=== PATIENT | male | born 1975 | race Two or more races ===

== ENCOUNTER → 2019-11-14 | Outpatient (CLI) | payer BC ==
--- NOTE | 2019-11-14 22:25 | CONS ---
CONSULTATION DATE OF SERVICE: 11/14/2019 This patient is a 44-year-old gentleman who has been evaluated in the sleep center for possible obstructive sleep apnea-hypopnea syndrome. HISTORY OF PRESENT ILLNESS/SLEEP-WAKE EVALUATION: Patient's usual sleep schedule is from 11 p.m. to 7 a.m. on working days and from 11 p.m. until 7 to 11 a.m. on weekends. Usually no problems with falling asleep. No TV in bedroom. He sleeps on the side position with loud snoring, witnessed episodes of stopped breathing during sleep, awakenings from sleep with nocturia. He has positive history of twitching legs during the night also, according to his . Sometimes he has sleeptalking. In the morning the patient wakes up tired and is sleepy during the day. [place] Sleepiness Scale is 10. He may take one nap a day around noon time. Patient's weight has increased by around 60 pounds over the last 5 years. No history of hypnagogic hallucinations, sleep paralysis or cataplexy. PAST MEDICAL HISTORY: Positive for hypertension. MEDICATIONS: Losartan, hydrochlorothiazide. PAST SURGICAL HISTORY: None. SOCIAL HISTORY: Negative for smoking or using alcohol. FAMILY HISTORY: Hypertension, sleep apnea, snoring, questionable stroke in his mother. REVIEW OF SYSTEMS: Awakenings from sleep, sleepiness during the day, sometimes swelling of the legs. PHYSICAL EXAMINATION: GENERAL: A pleasant gentleman without distress. VITAL SIGNS: BP 138/88, HR 88, RR 16, height 6 feet 3 inches, weight 343.0, body mass index 48.8. HEENT: PERRLA, EOMI. Evaluation of oropharynx showed tongue protrudes midline. Short distance between soft palate and pharyngeal wall. Restriction of nasal breathing. Nose slightly asymmetric. NECK: Supple. No JVD. Thyroid is not palpable. LUNGS: Clear to percussion and to auscultation. Good air exchange. No wheezing or rhonchi. HEART: S1, S2 regular. No murmurs, gallops or rubs. ABDOMEN: Obese. EXTREMITIES: One plus bilateral ankle edema. MECHANICAL RELIABILITY ENGINEER: Awake, alert, and oriented X3. Cranial nerves 2 to 7 intact. There is no fasciculation or atrophy. noted. No focal deficits observed. IMPRESSION: 1. Loud snoring, witnessed episodes of stopped breathing during sleep, awakenings from sleep with choking and gasping for air, wide neck, 20 inches, sleepiness, [place] Sleepiness Scale of 10; obstructive sleep apnea-hypopnea syndrome. 2. Obesity; body mass index 42.8. 3. Hypertension. 4. Restriction of nasal breathing; possibly nasal septum deviation. PLAN: 1. Polysomnography for evaluation of patient's breathing during sleep. 2. CPAP/BiPAP titration if sleep study confirms obstructive sleep apnea-hypopnea syndrome. 3. Preferable position during sleep on the side. 4. No driving if patient feels any sleepiness. 5. I will see patient for follow up visit to explain results of testing and following plan. Thank you very much for referring this patient for consultation. Sincerely, David Iyer MD, PhD, FAASM Diplomat of [place] [employer] Specialties [place] [employer] Medicine Dry Starch Operator of [facility] [place] MMODL / IJN: [id number] /
== END | disposition home or self-care (01) ==
LOC: SLEEP 15:41
PROVIDERS: ATTEND Internal Medicine
DX: G47.33 Obstructive sleep apnea (adult) (pediatric) (principal); E66.9 Obesity, unspecified; Z68.41 Body mass index [BMI] 40.0-44.9, adult; I10 Essential (primary) hypertension; Z83.6 Family history of other diseases of the respiratory system; Z79.899 Other long term (current) drug therapy
CPT/HCPCS: 99211

== ENCOUNTER → 2020-04-29 | Outpatient (CLI) | payer BC ==
--- NOTE | 2020-04-29 20:23 | SFUN ---
SLEEP CENTER FOLLOW UP NOTE DATE OF SERVICE: 04/29/2020 This patient is a 44-year-old gentleman who has been followed in Sleep Center for treatment of obstructive sleep apnea-hypopnea syndrome. The patient recently received his CPAP unit. He is able to use the equipment every night, feels better with the machine. I reviewed results of his sleep studies and explained them to the patient. I checked the reading from his CPAP unit. Usage is 26/30 days, which is 87%, for more than 4 hours, with average usage 5 hours and 3 minutes. The machine is in the range of pressure 6 to 11 cm of water. The 95th percentile of the pressure is 10.7. Apnea- hypopnea index is 5.9. [place] Sleepiness Scale is 4. MEDICATIONS: Losartan, hydrochlorothiazide. PHYSICAL EXAMINATION: GENERAL: A pleasant patient in no distress. VITAL SIGNS: BP 115/67, HR 94, RR 16, weight 341, temperature 97.6, oxygen saturation at room air 97%. HEENT: PERRLA, EOMI. Evaluation of oropharynx showed tongue protrudes midline. Low position of soft palate. NECK: Supple. No JVD. Thyroid is not palpable. LUNGS: Clear to percussion and to auscultation. Good air exchange. No wheezing or rhonchi. HEART: S1, S2 regular. No murmurs, gallops or rubs. ABDOMEN: Obese. EXTREMITIES: No clubbing or cyanosis. HOME MANAGER: Awake, alert, and oriented X3. Cranial nerves 2 to 7 intact. There is no fasciculation or atrophy. noted. No focal deficits observed. IMPRESSION: 1. Obstructive sleep apnea-hypopnea syndrome. Patient demonstrated great compliance with treatment, benefitting from treatment. 2. Average apnea-hypopnea index slightly above 5, which is acceptable, but I believe the patient will need slightly higher pressure in his CPAP unit. 3. Hypertension. 4. Restriction of nasal breathing. PLAN: 1. I adjusted his CPAP unit to the range of pressure from 5 to 14 cm of water. 2. Patient will continue to use PAP equipment every night for the whole night. 3. Sleep hygiene with regular time in bed for at least 7-1/2 to 8 hours. 4. Precautions related to driving. No driving if feeling sleepiness. 5. I will maintain all necessary prescription for PAP supplies including mask, tube, filters. 6. Watching weight. 7. No driving if feeling sleepiness. 8. Follow-up visit in 6 months or earlier if patient has any problems. Thank you very much for allowing me to participate in the management of your patient. Sincerely, David Iyer MD, PhD, FAASM Diplomat of [place] Board of Medical Specialties [employer] [place] Board of Internal Medicine Yard Coordinator of [facility] [place] MMODL / MARTAN: [id number] /
== END | disposition home or self-care (01) ==
LOC: SLEEP 15:57
PROVIDERS: ATTEND Internal Medicine
DX: G47.33 Obstructive sleep apnea (adult) (pediatric) (principal); I10 Essential (primary) hypertension; R06.89 Other abnormalities of breathing; Z99.89 Dependence on other enabling machines and devices

== ENCOUNTER → 2020-11-19 | Outpatient (CLI) | payer BC ==
--- NOTE | 2020-11-19 23:19 | SFUN ---
SLEEP CENTER FOLLOW UP NOTE DATE OF SERVICE: 11/19/2020 45-year-old gentleman followed in Sleep Center for treatment of obstructive sleep apnea- hypopnea syndrome. The patient continues to use CPAP equipment every night and sometimes has been drooling while using machine. Otherwise, no snoring with the machine. No significant excessive daytime sleepiness. [place] Sleepiness Scale is 6, which is in normal range. I checked his CPAP machine. The range of the pressure is 6-14, average pressure is 10.7, usage is 23 out of 30 nights and 13 out of 30 nights for more than 4 hours. Average usage 4.4 hours per night. Leak is only 5 L/minute. Apnea-hypopnea index is 1.2, which is totally perfect. MEDICATIONS: Losartan 50 mg once a day. PHYSICAL EXAM: Patient in no distress. BP 116/80, HR 94, RR 15, height 6 feet 2 and 3 quarter inches, weight 341.2, temperature 98.6, oxygen saturation at room air 99%. Oropharynx: Low position of soft palate. NECK: Supple, no JVD. Thyroid is not palpable. LUNGS: Clear to percussion and to auscultation. Good air exchange. No wheezing or rhonchi. HEART: S1, S2 regular. No murmurs, gallops, or rubs. ABDOMEN: Obese. Soft and nontender. Bowel sounds are present. No organomegaly appreciated. EXTREMITIES: No clubbing or cyanosis. HOOK AND EYE SEWING MACHINE OPERATOR: Awake, alert, and oriented X3. Cranial nerves 2 to 7 intact. There is no fasciculation or atrophy. noted. No focal deficits observed. IMPRESSION: 1. Obstructive sleep apnea-hypopnea syndrome. The patient demonstrated good compliance with treatment benefitting from treatment. Totally normal apnea-hypopnea index at the present time after pressure was adjusted during the previous visit. 2. We discussed with the patient adjustments which might be necessary because he is experiencing some drooling. We discussed this. 3. Hypertension. 4. Restriction of nasal breathing. 5. Obesity, BMI 43.7. PLAN: 1. Patient will put machine lower than his head. 2. Prescription for chin strap. 3. Discuss possibility to adjust humidity slightly lower for prevention of drooling. 4. Sleep hygiene with regular time in bed for at least 7-1/2 to 8 hours. 5. Precautions related to driving. No driving if feeling sleepiness. 6. I will maintain all necessary prescription for PAP supplies including mask, tube, filters. 7. Watching weight. 8. No driving if feeling sleepiness. 9. Follow-up visit in 6 months or earlier if patient has any problems. Thank you very much for allowing me to participate in management of your patient. Sincerely, David Iyer MD, PhD, FAASM Diplomat of [place] Board of Medical Specialties [employer] Board of Internal Medicine Coiled Tubing Operator of [facility] [place] MMODL / MARTAN: [id number] /
== END | disposition home or self-care (01) ==
LOC: SLEEP 16:17
PROVIDERS: ATTEND Internal Medicine
DX: G47.33 Obstructive sleep apnea (adult) (pediatric) (principal); I10 Essential (primary) hypertension; E66.9 Obesity, unspecified; Z68.41 Body mass index [BMI] 40.0-44.9, adult; Z79.899 Other long term (current) drug therapy; Z99.89 Dependence on other enabling machines and devices

== ENCOUNTER → 2021-04-14 | Outpatient (CLI) | payer BC ==
--- NOTE | 2021-04-14 15:27 | SFUN ---
SLEEP CENTER FOLLOW UP NOTE DATE OF SERVICE: 04/14/2021 INTERVAL HISTORY: This 45-year-old gentleman has been followed in Sleep Center for treatment of obstructive sleep apnea-hypopnea syndrome. The patient continues to use his CPAP equipment, but still has some drooling from his mouth during sleep. We discussed the option for usage of the chinstrap. He received chinstrap but this was the wrong size of the chinstrap. [place] Sleepiness Scale today is 5. I checked his CPAP unit. Range of the pressure 6-14. Usage is 16/30 nights. Average usage is 3.9 hours per night. Leak is 11 L/minute. Apnea-hypopnea index is only 1.1. MEDICATIONS: Losartan hydrochlorothiazide once daily. PHYSICAL EXAMINATION: GENERAL: Patient in no distress. VITAL SIGNS: BP 119/79, HR 92, RR 15, height 6 feet 2-1/4 inches, weight 248.4 pounds, temperature 97.4, body mass index 44.4. HEENT: PERRLA, EOMI, evaluation of oropharynx showed tongue protrudes midline. Low position of soft palate. NECK: Supple, no JVD. Thyroid is not palpable. LUNGS: Clear to percussion and to auscultation. Good air exchange. No wheezing or rhonchi. HEART: S1, S2 regular. No murmurs, gallops, or rubs. ABDOMEN: Soft and nontender. Bowel sounds are present. No organomegaly appreciated. Obese. EXTREMITIES: No clubbing or cyanosis. SENIOR SYSTEMS PROGRAMMER: Awake, alert, and oriented X3. Cranial nerves 2 to 7 intact. There is no fasciculation or atrophy. noted. No focal deficits observed. IMPRESSION: 1. Obstructive sleep apnea-hypopnea syndrome, normal respiration on CPAP, slightly low compliance with usage of the CPAP. The patient has drooling while using CPAP equipment. 2. Hypertension. 3. Obesity, body mass index 44.4. 4. Restriction of nasal breathing. PLAN: PLAN 1. Patient will continue to use PAP equipment every night for the whole night. Chin strap to use with CPAP equipment. Patient needs larger size chin strap to prevent drooling. 2. Sleep hygiene with regular time in bed for at least 7-1/2 to 8 hours. 3. Precautions related to driving. No driving if feeling sleepiness. 4. I will maintain all necessary prescription for PAP supplies including mask, tube, filters. 5. Watching weight. 6. Follow-up visit in 6 months or earlier if patient has any problems. I spent with the patient and documentation more than 30 minutes. Thank you very much for allowing me to participate in the management of your patient's. Sincerely, David Iyer MD, PhD, FAASM Diplomat of [place] Board of Medical Specialties [employer] Board of Internal Medicine Tool Specialist of [facility] [place] MMODL / MARTAN: [id number] /
== END ==
LOC: SLEEP 10:26
PROVIDERS: ATTEND Internal Medicine
DX: G47.33 Obstructive sleep apnea (adult) (pediatric) (principal); I10 Essential (primary) hypertension; E66.9 Obesity, unspecified; R06.89 Other abnormalities of breathing; Z68.41 Body mass index [BMI] 40.0-44.9, adult; Z99.81 Dependence on supplemental oxygen; Z79.899 Other long term (current) drug therapy

== ENCOUNTER → 2021-09-30 | Outpatient (CLI) | payer BC ==
--- NOTE | 2021-09-30 22:42 | SFUN ---
SLEEP CENTER FOLLOW UP NOTE DATE OF SERVICE: 09/30/2021 This 46-year-old gentleman has been followed in Sleep Center for treatment of obstructive sleep apnea-hypopnea syndrome. Patient continues to use his CPAP equipment. During previous visit, his compliance was very low. He improved his compliance. Now, according to him, he is using his CPAP equipment at night. The only thing which is not always working for him is that he has drooling from his mouth. He is using a full-face mask and sometimes drooling goes to the mask. I discussed with him the option of using a chinstrap, but according to him, his head is large, and there is no chinstrap available for the size of his head. We discussed the possibility of a modification of chinstrap by himself, and I am pretty sure that a different size of chinstrap is available. I checked his CPAP unit. It is in automatic regimen. Range of the pressure is 6-14, average pressure 10.4. Usage is 24/30 nights and 18/30 nights for more than 4 hours with average 5.9 hours per night, which is definitely better compliance than he showed during previous visit. Leak is 6 L/minute. Apnea-hypopnea index is only 1.2, which is absolutely normal. [place] Sleepiness Scale is 5. MEDICATIONS: Losartan once a day. PHYSICAL EXAMINATION: GENERAL: Pleasant patient in no distress. VITAL SIGNS: BP 139/88, HR 92, RR 15, height 6 feet 2-1/4 inches, weight 343 pounds, BMI 43.8, temperature 98.1, oxygen saturation at room air 95%. HEENT: PERRLA, EOMI, evaluation of oropharynx showed tongue protrudes midline. Low position of soft palate. NECK: Supple, no JVD. Thyroid is not palpable. LUNGS: Clear to percussion and to auscultation. Good air exchange. No wheezing or rhonchi. HEART: S1, S2 regular. No murmurs, gallops, or rubs. ABDOMEN: Obese. EXTREMITIES: No clubbing or cyanosis. STEREO PLOTTER OPERATOR: Awake, alert, and oriented X3. Cranial nerves 2 to 7 intact. There is no fasciculation or atrophy. noted. No focal deficits observed. IMPRESSION: 1. Obstructive sleep apnea-hypopnea syndrome. Patient demonstrated borderline compliance with treatment, benefitting from treatment. Drooling while using CPAP. 2. Hypertension. 3. Obesity; body mass index 43.8. 4. Restriction of nasal breathing. PLAN: 1. Patient will continue to use PAP equipment every night for the whole night. 2. Sleep hygiene with regular time in bed for at least 7-1/2 to 8 hours. 3. Precautions related to driving. No driving if feeling sleepiness. 4. I will maintain all necessary prescription for PAP supplies including mask, tube, filters. 5. Watching weight. 6. Patient should get a chinstrap additionally to prevent drooling. 7. Follow-up visit in 6 months or earlier if patient has any problems. Thank you very much for allowing me to participate in the management of your patient. Sincerely, David Iyer MD, PhD, FAASM Diplomat of [place] Board of Medical Specialties Sleep Medicine Board of [place] Board of Internal Medicine Warehouse Logistics Manager of [facility] [place] MMODL / MARTAN: [id number] /
== END ==
LOC: SLEEP 16:53
PROVIDERS: ATTEND Internal Medicine
DX: G47.33 Obstructive sleep apnea (adult) (pediatric) (principal); I10 Essential (primary) hypertension; E66.9 Obesity, unspecified; Z68.41 Body mass index [BMI] 40.0-44.9, adult; Z79.899 Other long term (current) drug therapy

== ENCOUNTER → 2022-04-07 | Outpatient (CLI) | payer BC ==
--- NOTE | 2022-04-07 16:41 | P.PN ---
Subjective DATE: 04/07/2022 FOLLOW UP VISIT. Patient with obstructive sleep apnea hypopnea syndrome return to sleep center for follow-up visit. Patient is using PAP equipment every night for the whole night, getting PAP supplies in time. The patient does not have significant problems with the mask, PAP unit and humidification. [place] sleepiness scale is 6. I checked PAP unit. Air filter needs to be replaced. PAP unit pressure 6-13 average 10.8 cm H2O. Usage is more then 70 % for more then 4 hours, average 5 hours per night. Leak is 10 l/m, which is in acceptable range. Apnea Hypopnea Index is 0.7, which is normal. MEDICATIONS:1. Losartan During physical exam: GENERAL: A pleasant patient without any distress. VITAL SIGNS: BP 135/82, HR 91, RR 18, weight 355.2, temperature 97.1, oxygen saturation at room air 97. HEENT: PERRLA, EOMI.low position of soft palate, Mallapati for. NECK: Supple. No JVD. LUNGS: Clear to percussion and to auscultation. Good air exchange. No wheezing or rhonchi. HEART: S1, S2 regular. ABDOMEN: Soft and nontender. Obese EXTREMITIES: No clubbing or cyanosis. INTELLECTUAL PROPERTY COUNSEL: Awake, alert, and oriented x3. No focal deficit. Impressions: 1. Obstructive sleep apnea-hypopnea syndrome. Patient demonstrated great compliance with treatment, benefiting from treatment. 2. Obesity. 3. Hypertension. 4. Restriction of nasal breathing think, patient has to use a fullface mask for CPAP treatment. Plan: 1. Continue using PAP equipment every night for the whole night. 2. To change air filter at least 1-2 times per month. 3. PAP unit should stay lower then position of the head. 4. Advised patient to remove all remaining water from humidifier canister daily and make it dry after each usage. Refill canister with fresh distilled water before each usage. 5. Sleep hygiene with regular time in bed for at least 8 hours. 6. Precautions related to driving. No driving if feel any sleepiness. 7. I will maintain prescription for PAP supplies including mask, tube, filters. 8. Follow up visit in 6 months or earlier if patient has any problems. 9. Watching weight. Thank you very much for allowing me to participate in the management of your patient. David Iyer MD, PhD, FAASM. Diplomat of [place] Board of Sleep Medicine, Sleep Medicine Board by [place] Board of Internal Medicine Lining Printer of [facility] [place]
== END ==
LOC: SLEEP 16:04
PROVIDERS: ATTEND Internal Medicine
DX: G47.33 Obstructive sleep apnea (adult) (pediatric) (principal); E66.9 Obesity, unspecified; I10 Essential (primary) hypertension; Z99.89 Dependence on other enabling machines and devices; Z79.899 Other long term (current) drug therapy

== ENCOUNTER 2022-04-15 09:35 | Day surgery (SDC) | payer BC ==
[2022-04-12 16:12] VITALS: BMI 44.9
[~2022-04-15 09:35] MED LIST: LACTATED RINGERS 1,000 ML IV SCH
[2022-04-15 10:26] VITALS: TEMP 98.4
[2022-04-15] MEDS ORDERED: fentaNYL (PF) 50 MCG/ML 2 ML AMP ONE (11:26)
[2022-04-15] MEDS ORDERED: PROPOFOL 10 MG/ML 20 ML VIAL IV ONE (11:26)
[2022-04-15] MEDS ORDERED: MIDAZOLAM 2 MG/2 ML VIAL ONE (11:26)
--- NOTE | 2022-04-15 11:43 | P.PCN ---
Date of Procedure: 04/15/22 Procedure(s) Performed: BRIEF HISTORY: Patient is a 46-year-old pleasant white male scheduled for an elective colonoscopy as a part of value should of intermittent rectal bleeding for the last 1 year duration. PROCEDURE PERFORMED: Colonoscopy with biopsy. PREOPERATIVE DIAGNOSIS: Intermittent rectal bleeding. IV sedation per Anesthesia. PROCEDURE: After informed consent was obtained, the patient, was brought into the endoscopy unit. IV sedation was administered by Anesthesia under continuous monitoring. Digital rectal examination was normal. Initially the Olympus CF-160 flexible video colonoscope was then inserted in the rectum, gradually advanced into the cecum without any difficulty. Careful examination was performed as the scope was gradually being withdrawn. Ileocecal valve and the appendiceal orifice were visualized and appeared normal. Prep was excellent. Mucosa of the cecum appeared normal. In the ascending colon there was a 2 mm polyp that was removed by cold biopsy. Rest, ascending colon, transverse colon, descending colon, sigmoid colon, and rectum appeared normal. Retroflexion was performed in the rectum and all internal were seen. The patient tolerated the procedure well. IMPRESSION: 2 mm ascending colon polyp status post cold biopsy Small internal hemorrhoids RECOMMENDATIONS: Findings of this examination were discussed with the patient with his family. He was advised to with the biopsy results and be a high-fiber diet and take fiber supplements a regular basis. He was advised to have a repeat screening colonoscopy in 10
[2022-04-15 11:50] VITALS: RESP 16
[2022-04-15 12:03] VITALS: BP 116/79; PULSE 87
== END 2022-04-15 12:23 | disposition home or self-care (01) ==
LOC: ORWHC2ENDO 09:35
PROVIDERS: ATTEND Internal Medicine Gastroenterology
DX: K63.5 Polyp of colon (principal); K64.8 Other hemorrhoids; G47.33 Obstructive sleep apnea (adult) (pediatric); E66.01 Morbid (severe) obesity due to excess calories; Z68.41 Body mass index [BMI] 40.0-44.9, adult; Z79.899 Other long term (current) drug therapy
CPT/HCPCS: 88305; 45380; J2250; J3010; J2704

== ENCOUNTER → 2022-10-27 | Outpatient (CLI) | payer BC ==
--- NOTE | 2022-10-27 16:50 | P.PN ---
Subjective DATE: 10/27/2022 FOLLOW UP VISIT. Patient with obstructive sleep apnea hypopnea syndrome return to sleep center for follow-up visit. Information from previous visit have been reviewed. Patient is using PAP equipment every night for the whole night, getting PAP supplies in time. The patient does not have significant problems with the mask, PAP unit and humidification. [place] sleepiness scale is 6, which is normal. I checked information from PAP unit. PAP unit pressure 6-14, average 10.7 cm H2O. Usage is 100 % for more then 4 hours, average 6.9 hours per night. Leak is 20 l/m, which is in acceptable range. Apnea Hypopnea Index is perfect 0.6. MEDICATIONS:1. Losartan 12.5 mg once a day During physical exam: GENERAL: A pleasant patient without any distress. VITAL SIGNS: BP 115/86, HR 100, RR 18 , weight 360.4, temperature 97.0, oxygen saturation at room air 96 % . HEENT: PERRLA, EOMI.low position of soft palate, Mallapati 4 . NECK: Supple. No JVD. LUNGS: Clear to percussion and to auscultation. Good air exchange. No wheezing or rhonchi. HEART: S1, S2 regular. ABDOMEN: Soft and nontender. Obese EXTREMITIES: No clubbing or cyanosis. SENIOR CLIMATE ADVISOR: Awake, alert, and oriented x3. No focal deficit. Impressions: 1. Obstructive sleep apnea-hypopnea syndrome. Patient demonstrated great c ompliance with treatment, benefiting from treatment. 2. Obesity. 3. Hypertension. 4. Restriction of nasal breathing. Plan: 1. Continue using PAP equipment every night for the whole night. 2. To change air filter at least 1-2 times per month. 3. PAP unit should stay lower then position of the head. 4. Advised patient to remove all remaining water from humidifier canister daily and make it dry after each usage. Refill canister with fresh distilled water before each usage. 5. Sleep hygiene with regular time in bed for at least 8 hours. 6. Precautions related to driving. No driving if feel any sleepiness. 7. I will maintain prescription for PAP supplies including mask, tube, filters. 8. Follow up visit in 6 months or earlier if patient has any problems. 9. Watching and losing weight. Thank you very much for allowing me to participate in the management of your patient. David Iyer MD, PhD, FAASM. Diplomat of [place] Board of Sleep Medicine, Sleep Medicine Board by [place] Board of Internal Medicine Supervisor Aircraft Maintenance of [facility] [place]
== END ==
LOC: SLEEP 16:19
PROVIDERS: ATTEND Internal Medicine
DX: G47.33 Obstructive sleep apnea (adult) (pediatric) (principal); E66.9 Obesity, unspecified; I10 Essential (primary) hypertension; R06.89 Other abnormalities of breathing; Z99.89 Dependence on other enabling machines and devices
CPT/HCPCS: 99212

== ENCOUNTER → 2024-05-15 | Outpatient (CLI) | payer BC ==
[2024-05-15 15:49] VITALS: BP 107/76; PULSE 112; RESP 16; TEMP 98.2
--- NOTE | 2024-05-15 16:04 | P.PROGSL ---
Subjective DATE: 05/15/2024 FOLLOW UP VISIT. Patient with obstructive sleep apnea hypopnea syndrome return to sleep center for follow-up visit. Information from previous visit have been reviewed. Patient is using PAP equipment every night for the whole night, getting PAP supplies in time. The patient does not have significant problems with the mask, PAP unit and humidification. [place] sleepiness scale is 5, which is normal. I checked information from PAP unit. PAP unit pressure 6-14, average 10.3 cm H2O. Usage is 98% for more then 4 hours, average 5.9 hours per night. Leak is 17 l/m, which is in acceptable range. Apnea Hypopnea Index is 0.4, which is normal. MEDICATIONS: Please see below During physical exam: GENERAL: A pleasant patient without any distress. VITAL SIGNS: Please see below, weight 347 pounds, BMI 44.5. HEENT: PERRLA, EOMI.low position of soft palate, Mallapati 4 . NECK: Supple. No JVD. LUNGS: Clear to percussion and to auscultation. Good air exchange. No wheezing or rhonchi. HEART: S1, S2 regular. ABDOMEN: Soft and nontender. Obese EXTREMITIES: No clubbing or cyanosis. SAP ENTERPRISE PORTAL CONSULTANT: Awake, alert, and oriented x3. No focal deficit. Impressions: 1. Obstructive sleep apnea-hypopnea syndrome. Patient demonstrated great compliance with treatment, benefiting from treatment. 2. Obesity, patient lost 13 pounds comparing with the previous visit, BMI 44.5. 3. Hypertension. 4. Some restriction of nasal breathing. Plan: 1. Continue using PAP equipment every night for the whole night. 2. To change air filter at least 1-2 times per month. 3. PAP unit should stay lower then position of the head. 4. Advised patient to remove all remaining water from humidifier canister daily and make it dry after each usage. Refill canister with fresh distilled water before each usage. 5. Sleep hygiene with regular time in bed for at least 8 hours. 6. Precautions related to driving. No driving if feel any sleepiness. 7. I will maintain prescription for PAP supplies including mask, tube, filters. 8. Follow up visit in 6 months or earlier if patient has any problems. 9. Watching and continue losing weight. Thank you very much for allowing me to participate in the management of your patient. David Iyer MD, PhD, FAASM. Diplomat of Chinese Board of Sleep Medicine, Sleep Medicine Board by [employer] Board of Internal Medicine Order Processor of [facility] [place] cc: Apryl Phan DO Objective - Vital Signs Vital Signs: Vital Signs Temp 98.2 F 05/15/24 15:47 Pulse 112 H 05/15/24 15:47 Resp 16 05/15/24 15:47 BP 107/76 05/15/24 15:47 Pulse Ox 96 05/15/24 15:47 FiO2 Intake & Output 05/14/24 05/15/24 05/15/24 18:59 06:59 18:59 Weight 157.397 kg Home Medications: Home Medications Medication Instructions Recorded Confirmed Type Losartan Potassium [Cozaar] 12.5 mg PO DAILY 04/12/22 05/15/24 History
== END ==
LOC: 3 N SLEEP 15:35
PROVIDERS: ATTEND Internal Medicine
DX: G47.33 Obstructive sleep apnea (adult) (pediatric) (principal); E66.9 Obesity, unspecified; I10 Essential (primary) hypertension; R06.89 Other abnormalities of breathing; Z99.89 Dependence on other enabling machines and devices; Z79.899 Other long term (current) drug therapy; Z68.41 Body mass index [BMI] 40.0-44.9, adult
CPT/HCPCS: 99212

== ENCOUNTER → 2025-02-20 | Outpatient (CLI) | payer BC ==
[2025-02-20 16:54] VITALS: BP 127/84; PULSE 112; RESP 16; TEMP 98
--- NOTE | 2025-02-20 17:32 | P.PROGSL ---
Subjective DATE: 02/20/2025 FOLLOW UP VISIT. Patient with obstructive sleep apnea hypopnea syndrome return to sleep center for follow-up visit. Information from previous visit have been reviewed. Patient is using PAP equipment every night for the whole night, getting PAP supplies in time. The patient does not have significant problems with the mask, PAP unit and humidification. [place] sleepiness scale is 5, which is normal. I checked information from PAP unit. PAP unit pressure 6-14, average 10.3 cm H2O. Usage is 98% for more then 4 hours, average 4.8 hours per night. Leak is 16 l/m, which is in acceptable range. Apnea Hypopnea Index is 0.5, which is normal. MEDICATIONS have been reviewed, please see below. During physical exam: GENERAL: A pleasant patient without any distress. VITAL SIGNS: Please see below, weight is 352 lbs. HEENT: PERRLA, EOMI.low position of soft palate, Mallapati 4 . NECK: Supple. No JVD. LUNGS: Clear to percussion and to auscultation. Good air exchange. No wheezing or rhonchi. HEART: S1, S2 regular. ABDOMEN: Soft and nontender. Obese EXTREMITIES: No clubbing or cyanosis. BENEFITS ADMINISTRATOR: Awake, alert, and oriented x3. No focal deficit. Impressions: 1. Obstructive sleep apnea-hypopnea syndrome. Patient demonstrated great compliance with treatment, benefiting from treatment. 2. 50, BMI 45.3, patient increased weight on 5 pounds comparing with previous visit. 3. Hypertension. 4. Restriction of nasal breathing. Plan: 1. Continue using PAP equipment every night for the whole night. 2. Sleep hygiene with regular time in bed for at least 7.5-8 hours 3. PAP unit should stay lower then position of the head. 4. Advised patient to remove all remaining water from humidifier canister daily and make it dry after each usage. Refill canister with fresh distilled water before each usage. 5. Watching and losing weight. 6. Precautions related to driving. No driving if feel any sleepiness. 7. I will maintain prescription for PAP supplies including mask, tube, filters. 8. Follow up visit in 8 months or earlier if patient has any problems. Thank you very much for allowing me to participate in the management of your patient. David Iyer MD, PhD, FAASM. Diplomat of [place] [employer], Sleep Medicine Board by [place] [employer] [facility] Objective - Vital Signs Vital Signs: Vital Signs Temp 98 F 02/20/25 16:53 Pulse 112 H 02/20/25 16:53 Resp 16 02/20/25 16:53 BP 127/84 02/20/25 16:53 Pulse Ox 96 02/20/25 16:53 FiO2 Intake & Output 02/19/25 02/20/25 02/20/25 18:59 06:59 18:59 Weight 147.418 kg Home Medications: Home Medications Medication Instructions Recorded Confirmed Type Losartan Potassium [Cozaar] 12.5 mg PO DAILY 04/12/22 02/20/25 History
== END ==
LOC: 3 N SLEEP 16:23
PROVIDERS: ATTEND Internal Medicine
DX: G47.33 Obstructive sleep apnea (adult) (pediatric) (principal); I10 Essential (primary) hypertension
CPT/HCPCS: 99212